=== PATIENT | female | born 1985 | race Caucasian/White ===

== ENCOUNTER → 2017-11-11 10:36 | Outpatient (CLI) | payer OTHER | END | disposition home or self-care (01) | LOC: D.US 10:36 | DX: I83.893 Varicose veins of bilateral lower extremities with other complications (principal) ==

== ENCOUNTER 2018-02-19 05:50 | Day surgery (SDC) | payer OTHER ==
[2018-02-18 10:54] LABS: HEMATOCRIT 36.5 % (36.0-48.0); HEMOGLOBIN 12.5 g/dL (12-16); MCH 29.4 pg (26.0-34.0); MCHC 34.2 g/dL (31.0-37.0); MCV 85.9 fL (80.0-100.0); MEAN PLATELET VOLUME 9.1 fL (7.4-10.4); RBC 4.25 10x6/uL (4.00-5.40); RDW 12.7 % (11.5-14.5); WBC 5.7 10x3/uL (4.8-10.8)
[~2018-02-19] VITALS: Ht 165.1 cm; Wt 68.0 kg
--- NOTE | ~2018-02-19 | OP ---
PATIENT NAME: AUGUSTINE GRANT MEDICAL RECORD: [id number] :87 LOCATION:D.OPS ADMISSION DATE: SURGEON: DANDY OLIVEIRA MD DATE OF OPERATION: 02/19/2018 PREOPERATIVE DIAGNOSES: 1. Bilateral lower extremity symptomatic varicose veins. 2. Bilateral pathologic greater saphenous venous reflux of the lower extremities. POSTOPERATIVE DIAGNOSES: 1. Bilateral lower extremity symptomatic varicose veins. 2. Bilateral pathologic greater saphenous venous reflux of the lower extremities. 3. Diminutive greater saphenous veins approximately the level of the popliteal fossa. PROCEDURE: Bilateral VNUS radiofrequency ablations of the greater saphenous veins. The length treated on the left was 28 cm and on the right was 32 cm. Bilateral avulsion phlebectomies, a total of 35 avulsion phlebectomies were performed. SURGEON: Dandy Oliveira MD [employer]OUND[employer] PROGRAMS DIRECTOR: None. BLOOD LOSS: 100 cc. ANESTHESIA: General. COMPLICATIONS: None. The risks, possible complications and alternatives to procedure were explained to the patient. She elects to proceed. The discussion specifically included, but was not limited to, bleeding requiring emergency reoperation, infection, paresthesias, numbness, nerve injury. OPERATIVE COURSE: The patient was conveyed to the operating room electively on 02/19/2018. General anesthesia was induced by the anesthesia staff. Both lower extremities were sterilely prepped and draped. The patient was placed in the reverse Trendelenburg position. I interrogated the left lower extremity with the ultrasound. With the transducer in an axial orientation, I was able to percutaneously access the greater saphenous vein. A guidewire passed easily. Over the guidewire, a dilator sheath was advanced. I advanced radiofrequency catheter to approximately the level of the knee. I tried to advance it further. Under ultrasonographic guidance, I noted that the greater saphenous vein became quite small in this area. Utilizing a [place] floppy wire, I tried to negotiate this very narrowed area of the greater saphenous vein and I was able to get the [place] wire to go up through this narrowed greater saphenous vein. However, the catheter would not follow. Under ultrasonographic guidance, a tumescent crystalloid solution was used to infiltrate the perivenular tissues to act as a heat sink in order to avoid thermal damage to surrounding structures. I then positioned the patient in the Trendelenburg position, I activated the radiofrequency catheter. With each activation, I pulled back 7 cm. The length OPERATIVE REPORT [id number] DRAIN,AUGUSTINE Ramos treated was listed above. I then placed the patient in the reverse Trendelenburg position again. I injected 2 ampules of foamed Asclera. I compressed the greater saphenous vein at the right groin for 5 minutes. Once I was done with this sclerotherapy of the portion of the greater saphenous vein that I could not reach with the radiofrequency catheter. I then positioned the patient in the Trendelenburg position. I had marked the patient in the holding area prior to surgery marking all of her varicose veins and this was done in the presence of a female nurse manager adobe. The markings were still easily identifiable. Skin nicks were accomplished. Avulsion phlebectomies were performed. At no time was there any apparent nervous injury. The sheath was removed. The sheath access site was closed with a single horizontal mattress 4-0 Vicryl Rapide suture. Attention was then turned to the right lower extremity. The patient was positioned in the reverse Trendelenburg position. Under ultrasonographic guidance, I accessed the greater saphenous vein easily. A guidewire was passed easily. A small skin renetta was accomplished. A dilator sheath was advanced over the wire. The dilator and wire were removed. Through the sheath, I advanced the radiofrequency catheter. It would only advance to about the level of the knee as well. I injected the perivenular tissues under ultrasonographic guidance with a tumescent crystalloid solution to act as a heat sink in order to avoid thermal damage to surrounding structures. I then activated the radiofrequency catheter. I activated it, and with each activation, I pulled back 7 cm. The entire length treated is listed above. This was done with the patient in the Trendelenburg position. I then positioned the patient in the reverse Trendelenburg position. Again, 2 cc of Asclera were foamed and injected up the greater saphenous vein. I held pressure over the greater saphenous vein at the groin under ultrasonographic guidance in order to increase the contact time between the foamed sclerosant and the greater saphenous vein valderrama. The patient was then positioned in the Trendelenburg position. Avulsion phlebectomies were performed through tiny incisions. The sheath was removed and the sheath puncture site was closed with a horizontal mattress 4-0 Vicryl Rapide suture. Sterile dressings were applied and they were bevelled proximally and distally in order to avoid ischemic contractures. The patient was then extubated and conveyed to post-anesthesia care unit where she was in stable condition. She will be dismissed home with Elizabeth for pain. I will plan for followup in the office on Thursday to have the dressings removed. TRANSINT:[id number] Voice Confirmation ID: [id number] DOCUMENT ID: [id number] DANDY OLIVEIRA MD at 1952 CC: [id number] DICTATION DATE: 02/19/18 1146 AIRCRAFT MANAGER: 02/19/18 1319 [facility] 02/19/18 [facility] [address] [id number]
[~2018-02-19 05:50] MED LIST: ELAVIL10 MG PO; LEXAPRO10 MG PO; NUVARING
[2018-02-19 06:26] VITALS: BP 137/68; Ht 165.1 cm; Wt 68.0 kg
[2018-02-19 07:32] LABS: HCG URINE NEGATIVE (NEGATIVE)
[2018-02-19] MEDS ORDERED: LOVASTATIN20 MG PO (09:09)
== END 2018-02-19 13:15 | disposition home or self-care (01) ==
LOC: D.OPS 05:50 → D.PAN 09:00 → D.OPS 13:15
PROVIDERS: Anesthesiology; Surgery
DX: I83.893 Varicose veins of bilateral lower extremities with other complications (principal); I87.2 Venous insufficiency (chronic) (peripheral); Z01.812 Encounter for preprocedural laboratory examination

== ENCOUNTER → 2018-03-02 12:00 | Outpatient (CLI) | payer OTHER ==
[2018-02-19 06:26] VITALS: BMI 25.0
[~2018-03-02 12:00] MED LIST changes: +LOVASTATIN20 MG PO
== END ==
LOC: D.US 03-01 13:00
DX: R60.0 Localized edema (principal)